=== PATIENT | male | born 1945 | race Caucasian/White ===

== ENCOUNTER 2016-08-30 13:07 | Inpatient (IN) | payer MEDICARE, OTHER ==
[~2016-08-30] VITALS: Ht 172.7 cm; Wt 77.1 kg
[2016-08-30] VITALS (8 sets, daily range): BP systolic 136–175; BP diastolic 80–97
[2016-08-30] MEDS ORDERED: OMEP20TA63 PO (14:19)
[2016-08-30] MEDS ORDERED: EZET10TA3 PO (14:19)
--- NOTE | 2016-08-30 15:20 | RAD ---
Indication dizziness. Suspect CVA. Grayscale color Doppler and spectral imaging was performed. Examination was targeted to the carotid bifurcations. On the right there is no significant plaquing. The color Doppler images do not suggest significant turbulence. Common carotid waveform and velocities are normal. The external carotid has a normal appearance. The internal carotid waveform and velocities are normal. The vertebral is patent and demonstrates normal directional flow. On the left there is no significant plaquing. The color Doppler images do not suggest significant turbulence. The common carotid waveform and velocities are normal. The external carotid has a normal appearance. The internal carotid waveform and velocities are normal. The vertebral is patent and demonstrates normal directional flow. IMPRESSION: No evidence of hemodynamically significant stenosis at either carotid bifurcation. Stenosis 0-50%. Note: Stenosis calculations for CT, MR and conventional angiography are based upon determination of the distal ICA diameter in accordance with the NASCET methodology. Stenosis calculations for doppler studies are derived from validated velocity criteria which are known to correlate with NASCET methodology of determining stenosis.
--- NOTE | 2016-08-30 16:16 | CARD ---
APPROVED REPORT EXAM: Two-dimensional and M-mode echocardiogram with Doppler and color Doppler. Other Information Quality : GoodHR: 62bpm Rhythm : NSR INDICATION Dizziness 2D DIMENSIONS RVDd2.4 (2.9-3.5cm)Left Atrium(2D)3.2 (1.6-4.0cm) IVSd1.0 (0.7-1.1cm)Aortic Root(2D)3.8 (2.0-3.7cm) LVDd5.0 (3.9-5.9cm)LVOT Diameter2.3 (1.8-2.4cm) PWd1.0 (0.7-1.1cm)LVDs3.2 (2.5-4.0cm) FS (%) 35.3 %SV74.7 ml LVEF(%)64.4 (>50%) Mitral Valve MV E Wfrlyopq13.9cm/sMV E Peak Gr.174mmHg MV DECEL [id number] A Xanmirag24.4cm/s MV E Mean Gr.35mmHgE/A Ratio1.3 MV A [id number] Pulmonary Valve PV Peak Jpecmsjn426.1cm/s Tricuspid Valve TR P. Oyyeeveu039et/sTR Peak Gr.34mmHg Pulmonary Vein S1 Pmbqcpcu50.1cm/sD2 Miqoyhpc46.3cm/s PVa [id number] LEFT VENTRICLE The left ventricle is normal size. There is normal left ventricular wall thickness. The left ventricu lar systolic function is normal and the ejection fraction is within normal range. The Ejection Fracti on is 60-65%. There is normal LV segmental wall motion. The left ventricular diastolic function and f illing is normal for age. RIGHT VENTRICLE The right ventricle is normal size. The right ventricular systolic function is normal. ATRIA The left atrium is mildly dilated. The right atrium size is normal. The interatrial septum is intact with no evidence for an atrial septal defect or patent foramen ovale as noted on 2-D or Doppler imagi ng. AORTIC VALVE The aortic valve is normal in structure and function. Doppler and Color Flow revealed no significant aortic regurgitation. There is no significant aortic valvular stenosis. MITRAL VALVE The mitral valve is normal in structure and function. There is no evidence of mitral valve prolapse. There is no mitral valve stenosis. Doppler and Color Flow revealed mild mitral regurgitation. TRICUSPID VALVE The tricuspid valve is normal in structure and function. Doppler and Color Flow revealed mild tricusp id regurgitation. The PA pressure was estimated at 34 mmHg. There is no tricuspid valve stenosis. PULMONIC VALVE The pulmonary valve is normal in structure and function. Doppler and Color Flow revealed trace pulmon ic valvular regurgitation. There is no pulmonic valvular stenosis. GREAT VESSELS The aortic root is normal in size. The ascending aorta is normal in size. The pulmonary artery is nor mal. The IVC is normal in size and collapses >50% with inspiration. PERICARDIAL EFFUSION There is no evidence of significant pericardial effusion. Critical Notification Critical Value: No <Conclusion> The left ventricle is normal size. The left ventricular systolic function is normal and the ejection fraction is within normal range. The Ejection Fraction is 60-65%. There is no significant aortic valvular stenosis. Doppler and Color Flow revealed no significant aortic regurgitation. Doppler and Color Flow revealed mild mitral regurgitation. Doppler and Color Flow revealed mild tricuspid regurgitation. The PA pressure was estimated at 34 mmHg.
[2016-08-30] MEDS ORDERED: ASPIRIN 325 MG TABLET PO ONE (16:30)
--- NOTE | 2016-08-30 17:05 | PDOC2 ---
NEUROLOGY CONSULT Date of Admission Date of Admission DATE: 08/30/16 TIME: 16:52 Reason for Consult Reason for Consult: IMPRESSION: Dizziness. Syncopal spells x 2. HTN RECOMMENDATIONS/PLAN: Treat HTN. Carotid A US + Doppler, performed. 12-lead EKG. Echo performed. Lab: see orders. HCT w/o contrast. Ortho BP and HR. ASA 325 mg daily. OT/PT HISTORY OF THE PRESENT ILLNESS: 71-y-old male patient stated he was healthy previously but had 2 syncopal and dizziness episodes this time. The first one was on 08/29/16 while he was going shopping. He felt dizzy, unsteadiness with mild mental status changes , and feeling of falling and he had to hold object to avoid fall. His episode lasted for a few minutes then returned to normal. He denied perspiration, black out, vision decrease or loss. The 2nd episode was in the morning of 08/30/16 after shaving of snow. He returned to house then had similar episode. He was eventually admitted into the hospital for further evaluation after seeing his PCP. He was found to have HTN which he has no knowledge before. No focalized motor or sensory deficits. No seizures. PAST MEDICAL HISTORY: Please see above. PAST SURGERY HISTORY: No major surgery recently. ALLERGY: NKDA MEDICATIONS: Refer to [facility] FAMILY HISTORY: Non contributory. SOCIAL HISTORY: Lives at home. Denies smoking, drinking, and illicit drug use. REVIEW OF SYSTEMS: Constitutional: No malnutrition, weight loss, cachexia. Head: No recent traumatic brain or head injury. Skin: No edema, or rash. Ear: No infection, tinnitus. Eyes: No vision loss or color blindness. Nose: No bleeding or purulent discharges. Hearing: No hearing decrease. Neck: No injury. Cardiac: HTN found this time. Pulmonary: No COPD. GI: No GI ulcer, GI bleeding. Urinary/genital: No dysuria, hematuria, incontinence. Endocrinologic: No cousin face, craniofacial dysmorphism, polydactyly, goiter.. Skeletomuscular: No muscular atrophy, deformity. Neurological: see HP. Psychiatric: Denies drug use/abuse. Otherwise, not [id number] review of systems. PHYSICAL EXAMINATION: General appearance is in no acute distress. HEENT: Normocephalic and nontraumatic. Eyes, nose, ears, and throat are unremarkable. Neck is supple. No lymphadenopathy. No bruits are heard over the carotid artery. No crepitus. Cardiovascular: S1, S2, regular rate and rhythm. Pulmonary: Clear to auscultation bilaterally. Abdomen: Bowel sounds are positive. Abdomen is soft, nontender, and nondistended. Extremities: No rash, lesions, or edema. No restriction of range of motion NEUROLOGICAL EXAMINATION: Alert Oriented to time, place and person. PERRL. EOMI. CN: no focal findings. Muscle tone: within normal. Muscle strength: 5 DTR: 2+ Plantar reflex: Flexor response bilaterally Gait: At baseline normal. Sensory exam: no abnormal findings. No cerebellar signs elicited. F-T-N test accurate. Current Medications Current Medications Current Medications EZETIMIBE (Zetia) 10 mg DAILY PO ; Start 08/31/16 at 09:00 Pantoprazole Sodium (Protonix) 40 mg DAILYAC PO ; Start 08/31/16 at 07:30 Aspirin (Murtaza Aspirin) 325 mg 1X ONCE PO Last administered on 08/30/16t 16:30 ; Start 08/30/16 at 16:30; Stop 08/30/16 at 16:31; Status DC Active Scripts Active Reported Zetia (Ezetimibe) 10 Mg Tablet 1 Tab PO DAILY Prilosec Otc (Omeprazole Magnesium) 20 Mg Tablet. 1 Tab PO DAILY Allergies Allergies: Coded Allergies: No Known Drug Allergies (Unverified , 08/30/16) Vitals VITALS Vital Signs Date Time Temp Pulse Resp B/P Pulse Ox O2 Delivery O2 Flow Rate FiO2 08/30/16 16:45 98.3 53 18 149/83 99 Room Air 98.3 MARILYNN SEWELL MD Aug 30, 2016 17:04
--- NOTE | 2016-08-30 17:20 | PDOC ---
GENERAL General: see dictated H&P. Problems: VITAL SIGNS Vital Signs: Vital Signs Date Time Temp Pulse Resp B/P Pulse Ox O2 Delivery O2 Flow Rate FiO2 08/30/16 16:45 98.3 53 18 149/83 99 Room Air 98.3 ALLERGIES Allergies: Allergies Coded Allergies Type Severity Reaction Last Updated Verified No Known Drug Allergies 08/30/16 No MEDS Medications: Current Medications Medications (Trade) Dose Ordered Sig/Jamie Start Time Stop Time Status Last Admin Dose Admin Aspirin (Murtaza Aspirin) 325 mg DAILYWBKFT 08/31/16 08:00 EZETIMIBE (Zetia) 10 mg DAILY 08/31/16 09:00 Pantoprazole Sodium (Protonix) 40 mg DAILYAC 08/31/16 07:30 JANNETTE LEGGETT MD Aug 30, 2016 17:20
--- NOTE | 2016-08-30 18:17 | EKG ---
[facility] [address] [place] [address] Test Date: 2016-08-30 Test Time: 18:11:11 Pat Name: TEODORO YUAN Department: Room: [facility] Gender: M Individual Pension Consultant: : 1945 Requested By: MARILYNN SEWELL Order Number: [id number] Reading MD: Measurements Intervals [place] Rate: 59 P: 38 IA: 184 QRS: 38 QRSD: 98 T: 64 QT: 416 QTc: 416 Interpretive Statements SINUS RHYTHM NORMAL ECG RI6.01 Unconfirmed report No previous ECG available for comparison
[2016-08-30 18:42] LABS: BASO % 1 % (0-3); EOS % 1 % (0-3); HEMATOCRIT 43.7 % (39.0-53.0); HEMOGLOBIN 14.7 g/dL (13.0-17.5); LYMPH # 1.9 x10^3/uL (1.0-4.8); LYMPH % 27 % (24-48); MEAN CORPUSCULAR HEMOGLOBIN 31 pg (25-35); MEAN CORPUSCULAR HGB CONC 34 g/dL (31-37); MEAN CORPUSCULAR VOLUME 92 fL (79-100); MONO % 5 % (0-9); NEUT % 66 % (31-73); PLATELET COUNT 135 x10^3/uL (140-400); RED BLOOD COUNT 4.74 x10^6/uL (4.30-5.70); RED CELL DISTRIBUTION WIDTH 13.4 % (11.5-14.5); WHITE BLOOD COUNT 6.9 x10^3/uL (4.0-11.0)
[2016-08-30 19:02] LABS: ALBUMIN 3.7 g/dL (3.4-5.0); ALBUMIN/GLOBULIN RATIO 1.2 (1.0-1.7); CALCIUM 9.1 mg/dL (8.5-10.1); GFR 74.1; POTASSIUM 3.8 mmol/L (3.5-5.1); TOTAL BILIRUBIN 0.6 mg/dL (0.2-1.0); TOTAL PROTEIN 6.7 g/dL (6.4-8.2)
--- NOTE | 2016-08-30 20:16 | HP ---
ADMIT DATE: 08/30/2016 CHIEF COMPLAINT AND HISTORY OF PRESENT ILLNESS: This is a 71-year-old white male who is well known to me from followup in the office. The patient has had several spells since the day prior, who has felt weak. On the first spell, he was out shopping with his and it felt like he might fall over. He denies vertigo with it or specific lightheadedness, but just felt like he was going to fall. He went to speak to his to tell her and was not able momentarily to get any words out, but then this cleared relatively rapidly. Upon getting a hold of the grocery cart and walking with that, he seemed to feel fine, but when he would let go the cart, he did not feel quite as good suggesting may be an acute balance type issue. However, on the day of admission, he had had several episodes while sitting. He has had no further troubles talking. He denied any palpitations, any hemiparesis, seizure type activity, etc.; however, he does admit to a history of orthostasis which he has had for some time, particularly if he takes a hot bath and gets up too quick but is really not troublesome to him. With the spell I was worried about possible TIA type activity versus arrhythmia and felt that he should be admitted at least to get a carotid Doppler, echo, have him on telemetry, see Cardiology and Neurology for clearance for getting him at this, and the patient was admitted. PAST MEDICAL HISTORY: Remarkable for diet-controlled diabetes, has a history of GERD, hyperlipidemia for which he takes Zetia, has had a history of kidney stones and some osteoarthritis. MEDICATIONS: Brought with the patient, listed on the computer and have been addressed. SOCIAL HISTORY: The patient is a nonsmoker, nondrinker. Does not abuse drugs. , lives at home with his . FAMILY HISTORY: Positive for dad dying of cancer is his 60s in the throat, mom dying of liver problems and was a drinker. REVIEW OF SYSTEMS: As mentioned above. PHYSICAL EXAMINATION: GENERAL: This is a well-developed, well-nourished white male in no acute distress. VITAL SIGNS: Reveal blood pressure of 125/70 that goes to 112/70 upon stand. Pulse is 70 and regular. HEAD, EYES, EARS, NOSE AND THROAT: Unremarkable. NECK: Supple, without adenopathy or thyromegaly. CHEST: Clear to auscultation and percussion. HEART: Regular rate and rhythm without S3, S4 or murmur. ABDOMEN: Soft and nontender, without hepatosplenomegaly or mass. EXTREMITIES: Without cyanosis, clubbing or edema. NEUROLOGIC: He is intact. I hear no carotid bruits. IMPRESSION: Dizziness as described above of uncertain etiology. PLAN: The patient has been admitted. He will be monitored on telemetry, echo and carotid Dopplers will be checked. Cardiology and Neurology will be asked to see the patient. He will be monitored, managed and treated appropriately. JANNETTE LEGGETT MD DR: LAYO/leo JOB#: [id number] / [id number]
[2016-08-30 20:42] LABS: BILIRUBIN,URINE NEGATIVE (NEG); GLUCOSE,URINE NEGATIVE (NEG); NITRITE,URINE NEGATIVE (NEG); PROTEIN,URINE NEGATIVE (NEG-TRACE); UROBILINOGEN,URINE 0.2 mg/dL (0.2 mg/dL)
[2016-08-30 20:46] LABS: BARBITURATES NEG (NEG); BENZODIAZEPINES NEG (NEG); CANNABINOIDS NEG (NEG); COCAINE NEG (NEG); ETHANOL, URINE NEG (NEG); METHADONE NEG (NEG); OPIATES NEG (NEG); PHENCYCLIDINE NEG (NEG)
[2016-08-30 20:49] LABS: BACTERIA,URINE 0 /HPF (0-FEW); RBC,URINE 0 /HPF (0-2); SQUAMOUS EPITHELIAL CELL,UR OCC /LPF; WBC,URINE 0 /HPF (0-4)
[2016-08-31] VITALS (8 sets, daily range): BP systolic 95–180; BP diastolic 64–91
[2016-08-31] MEDS ORDERED: ACETAMINOPHEN 325 MG TABLET. PO PRN (06:30)
[2016-08-31] MEDS: PANTOPRAZOLE 40 MG TABLET. PO SCH (07:11)
[2016-08-31] MEDS: ASPIRIN 325 MG TABLET PO SCH (08:37)
[2016-08-31] MEDS: EZETIMIBE 10 MG TABLET PO SCH (08:37)
--- NOTE | 2016-08-31 09:48 | RAD ---
One or more of the following individualized dose reduction techniques were utilized for this examination: 1. Automated exposure control 2. Adjustment of the mA and/or kV according to patient size 3. Use of iterative reconstruction technique CT brain without contrast. History: Dizziness, mental status changes CT scan of the brain was done without contrast. There is no intracranial hemorrhage or subdural hematoma. Ventricles are normal in size. There is no mass or shift of the midline. An acute CVA is not identified. Visualized sinuses are clear. Impression: 1. No intracranial hemorrhage or mass or acute finding noted. 2. An acute CVA is not identified.
[2016-08-31 10:21] LABS: CHOLESTEROL/HDL RATIO 2.1
--- NOTE | 2016-08-31 11:24 | PDOC ---
SUBJECTIVE Subjective feels ok, no dizziness, OBJECTIVE Vital Signs Vital Signs Date Time Temp Pulse Resp B/P Pulse Ox O2 Delivery O2 Flow Rate FiO2 08/31/16 11:11 98.1 61 18 142/86 97 Room Air 98.1 08/31/16 08:00 Room Air 08/31/16 07:10 69 95/64 97 Room Air 08/31/16 07:05 61 116/70 98 Room Air 08/31/16 07:00 97.8 54 18 139/67 97 Room Air 97.8 08/31/16 03:00 97.5 55 20 142/77 97 Room Air 97.5 08/30/16 23:00 97.3 53 20 143/80 98 Room Air 97.3 08/30/16 20:01 Room Air 08/30/16 19:00 98.1 60 20 141/84 99 Room Air 98.1 08/30/16 19:00 97.9 55 20 167/83 99 Room Air 97.9 08/30/16 19:00 97.9 52 20 175/80 100 Room Air 97.9 08/30/16 17:20 98.3 53 149/83 99 98.3 08/30/16 16:51 Room Air 08/30/16 16:45 98.3 53 18 149/83 99 Room Air 98.3 08/30/16 16:40 98.0 66 18 136/88 100 Room Air 98.0 08/30/16 16:35 97.9 53 18 165/86 100 Room Air 97.9 08/30/16 14:49 97.7 54 18 156/87 Room Air 97.7 170/97 I & O Intake and Output 08/31/16 07:00 Intake Total 570 ml Balance 570 ml Intake Oral 570 ml # Voids 3 PHYSICAL EXAM Physical Exam lungs clear heart RRR abd soft ext no edema ASSESSMENT/PLAN Assessment/Plan carotid ok, echo with mild pulmonary HTN ? cause no recent travel no calf pain but will check CTA chest R/O PE, increase activity today , pt encouraged to walk on floor, continue monitor likely home in AM Problems: COMMENT Lab Laboratory Tests Test 08/30/16 18:00 08/30/16 20:30 08/31/16 09:50 White Blood Count 6.9x10^3/uL (4.0-11.0) Red Blood Count 4.74x10^6/uL (4.30-5.70) Hemoglobin 14.7g/dL (13.0-17.5) Hematocrit 43.7% (39.0-53.0) Mean Corpuscular Volume 92fL (79-100) Mean Corpuscular Hemoglobin 31pg (25-35) Mean Corpuscular Hemoglobin Concent 34g/dL (31-37) Red Cell Distribution Width 13.4% (11.5-14.5) Platelet Count 135x10^3/uL (140-400) Neutrophils (%) (Auto) 66% (31-73) Lymphocytes (%) (Auto) 27% (24-48) Monocytes (%) (Auto) 5% (0-9) Eosinophils (%) (Auto) 1% (0-3) Basophils (%) (Auto) 1% (0-3) Neutrophils # (Auto) 4.5x10^3uL (1.8-7.7) Lymphocytes # (Auto) 1.9x10^3/uL (1.0-4.8) Monocytes # (Auto) 0.4x10^3/uL (0.0-1.1) Eosinophils # (Auto) 0.1x10^3/uL (0.0-0.7) Basophils # (Auto) 0.0x10^3/uL (0.0-0.2) Sodium Level 142mmol/L (136-145) Potassium Level 3.8mmol/L (3.5-5.1) Chloride Level 105mmol/L (98-107) Carbon Dioxide Level 32mmol/L (21-32) Anion Gap 5 (6-14) Blood Urea Nitrogen 16mg/dL (8-26) Creatinine 1.0mg/dL (0.7-1.3) Estimated GFR (Cockcroft-Gault) 74.1 BUN/Creatinine Ratio 16 (6-20) Glucose Level 141mg/dL (70-99) Calcium Level 9.1mg/dL (8.5-10.1) Total Bilirubin 0.6mg/dL (0.2-1.0) Aspartate Amino Transf (AST/SGOT) 27U/L (15-37) Alanine Aminotransferase (ALT/SGPT) 19U/L (16-63) Alkaline Phosphatase 61U/L (46-116) Total Protein 6.7g/dL (6.4-8.2) Albumin 3.7g/dL (3.4-5.0) Albumin/Globulin Ratio 1.2 (1.0-1.7) Urine Collection Type Unknown Urine Color Yellow Urine Clarity Clear Urine pH 7.0 Urine Specific [place] 1.010 Urine Protein Negativemg/dL (NEG-TRACE) Urine Glucose (UA) Negativemg/dL (NEG) Urine Ketones (Stick) Negativemg/dL (NEG) Urine Blood Negative (NEG) Urine Nitrite Negative (NEG) Urine Bilirubin Negative (NEG) Urine Urobilinogen Dipstick 0.2mg/dL (0.2 mg/dL) Urine Leukocyte Esterase Negative (NEG) Urine RBC 0/HPF (0-2) Urine WBC 0/HPF (0-4) Urine Squamous Epithelial Cells Occ/LPF Urine Bacteria 0/HPF (0-FEW) Urine Mucus Slight/LPF Urine Opiates Screen Neg (NEG) Urine Methadone Screen Neg (NEG) Urine Barbiturates Neg (NEG) Urine Phencyclidine Screen Neg (NEG) Urine Amphetamine/Methamphetamine Neg (NEG) Urine Benzodiazepines Screen Neg (NEG) Urine Cocaine Screen Neg (NEG) Urine Cannabinoids Screen Neg (NEG) Urine Ethyl Alcohol Neg (NEG) Triglycerides Level 30mg/dL (0-150) Cholesterol Level 152mg/dL (0-200) LDL Cholesterol, Calculated 72mg/dL (0-100) VLDL Cholesterol, Calculated 6mg/dL (0-40) HDL Cholesterol 74mg/dL (40-60) Cholesterol/HDL Ratio 2.1 JIMI ALEX MD Aug 31, 2016 11:24
[2016-08-31] MEDS ORDERED: IOHEXOL 300 MG/ML 100ML VIAL. IV ONE (11:30)
[2016-08-31] MEDS ORDERED: ZOLPIDEM 5 MG TABLET. PO PRN (11:30)
--- NOTE | 2016-08-31 11:54 | PDOC2 ---
CARDIAC CONSULT DATE OF CONSULT Date of Consult DATE: 08/31/16 TIME: 11:52 REASON FOR CONSULT Reason for Consult: dizziness REFERRING PHYSICIAN Referring Physician: Dr. Timo Lima SOURCE Source: Chart review, Patient HISTORY OF PRESENT ILLNESS HISTORY OF PRESENT ILLNESS 71 year old male with dizziness on 08/29/2016 while shopping. Had walked into the store from the parking lot and then became dizzy. Reports feeling like he was not "attached" to his body; denies vertigo. Walked hallways this a.m. without symptoms. EKG without dysrhythmias and no evidence of dysrhythmias on telemetry since admission. Echo completed without significant findings. Reason for Visit: dizziness PAST MEDICAL HISTORY Cardiovascular: HTN GI: GERD Musculoskeletal: Osteoarthritis Renal/: Other (renal calculi) Endocrine: Diabetes PAST SURGICAL HISTORY Past Surgical History: Cholecystectomy, Other (cervical fusion) FAMILY HISTORY Family History: Cancer SOCIAL HISTORY Smoke: No ALCOHOL: none Drugs: None Lives: with Family CURRENT MEDICATIONS CURRENT MEDICATIONS Current Medications Medications (Trade) Dose Ordered Sig/Jamie Route PRN Reason Start Time Stop Time Status Last Admin Dose Admin EZETIMIBE (Zetia) 10 mg DAILY PO 08/31/16 09:00 08/31/16 08:37 Pantoprazole Sodium (Protonix) 40 mg DAILYAC PO 08/31/16 07:30 08/31/16 07:11 Aspirin (Murtaza Aspirin) 325 mg 1X ONCE PO 08/30/16 16:30 08/30/16 16:31 DC 08/30/16 16:30 Aspirin (Murtaza Aspirin) 325 mg DAILYWBKFT PO 08/31/16 08:00 08/31/16 08:37 Acetaminophen (Tylenol) 650 mg PRN Q6HRS PRN PO MILD PAIN / TEMP 08/31/16 06:30 08/31/16 07:11 ALLERGIES ALLERGIES: Coded Allergies: No Known Drug Allergies (Unverified , 08/30/16) ROS Review of System 14 point review with pertinent positives in HPI PHYSICAL EXAM General: Alert, Oriented X3, Cooperative, No acute distress HEENT: Atraumatic, PERRLA Lungs: Clear to auscultation, Normal air movement Heart: Regular rate, Normal S1, Normal S2, No murmurs, Other (no carotid bruits ; tele: SR) Abdomen: Normal bowel sounds, Soft, No tenderness Extremities: No edema, Normal pulses Skin: No rashes Neuro: Normal speech Psych/Mental Status: Mental status NL, Mood NL MUSCULOSKELETAL: No deformity VITALS VITALS Vital Signs Date Time Temp Pulse Resp B/P Pulse Ox O2 Delivery O2 Flow Rate FiO2 08/31/16 11:11 98.1 61 18 142/86 97 Room Air 98.1 LABS Lab: Laboratory Tests Test 08/30/16 18:00 08/30/16 20:30 08/31/16 09:50 White Blood Count 6.9x10^3/uL (4.0-11.0) Red Blood Count 4.74x10^6/uL (4.30-5.70) Hemoglobin 14.7g/dL (13.0-17.5) Hematocrit 43.7% (39.0-53.0) Mean Corpuscular Volume 92fL (79-100) Mean Corpuscular Hemoglobin 31pg (25-35) Mean Corpuscular Hemoglobin Concent 34g/dL (31-37) Red Cell Distribution Width 13.4% (11.5-14.5) Platelet Count 135x10^3/uL (140-400) Neutrophils (%) (Auto) 66% (31-73) Lymphocytes (%) (Auto) 27% (24-48) Monocytes (%) (Auto) 5% (0-9) Eosinophils (%) (Auto) 1% (0-3) Basophils (%) (Auto) 1% (0-3) Neutrophils # (Auto) 4.5x10^3uL (1.8-7.7) Lymphocytes # (Auto) 1.9x10^3/uL (1.0-4.8) Monocytes # (Auto) 0.4x10^3/uL (0.0-1.1) Eosinophils # (Auto) 0.1x10^3/uL (0.0-0.7) Basophils # (Auto) 0.0x10^3/uL (0.0-0.2) Sodium Level 142mmol/L (136-145) Potassium Level 3.8mmol/L (3.5-5.1) Chloride Level 105mmol/L (98-107) Carbon Dioxide Level 32mmol/L (21-32) Anion Gap 5 (6-14) Blood Urea Nitrogen 16mg/dL (8-26) Creatinine 1.0mg/dL (0.7-1.3) Estimated GFR (Cockcroft-Gault) 74.1 BUN/Creatinine Ratio 16 (6-20) Glucose Level 141mg/dL (70-99) Calcium Level 9.1mg/dL (8.5-10.1) Total Bilirubin 0.6mg/dL (0.2-1.0) Aspartate Amino Transf (AST/SGOT) 27U/L (15-37) Alanine Aminotransferase (ALT/SGPT) 19U/L (16-63) Alkaline Phosphatase 61U/L (46-116) Total Protein 6.7g/dL (6.4-8.2) Albumin 3.7g/dL (3.4-5.0) Albumin/Globulin Ratio 1.2 (1.0-1.7) Urine Collection Type Unknown Urine Color Yellow Urine Clarity Clear Urine pH 7.0 Urine Specific [place] 1.010 Urine Protein Negativemg/dL (NEG-TRACE) Urine Glucose (UA) Negativemg/dL (NEG) Urine Ketones (Stick) Negativemg/dL (NEG) Urine Blood Negative (NEG) Urine Nitrite Negative (NEG) Urine Bilirubin Negative (NEG) Urine Urobilinogen Dipstick 0.2mg/dL (0.2 mg/dL) Urine Leukocyte Esterase Negative (NEG) Urine RBC 0/HPF (0-2) Urine WBC 0/HPF (0-4) Urine Squamous Epithelial Cells Occ/LPF Urine Bacteria 0/HPF (0-FEW) Urine Mucus Slight/LPF Urine Opiates Screen Neg (NEG) Urine Methadone Screen Neg (NEG) Urine Barbiturates Neg (NEG) Urine Phencyclidine Screen Neg (NEG) Urine Amphetamine/Methamphetamine Neg (NEG) Urine Benzodiazepines Screen Neg (NEG) Urine Cocaine Screen Neg (NEG) Urine Cannabinoids Screen Neg (NEG) Urine Ethyl Alcohol Neg (NEG) Triglycerides Level 30mg/dL (0-150) Cholesterol Level 152mg/dL (0-200) LDL Cholesterol, Calculated 72mg/dL (0-100) VLDL Cholesterol, Calculated 6mg/dL (0-40) HDL Cholesterol 74mg/dL (40-60) Cholesterol/HDL Ratio 2.[address] head and CDU without significant findings EKG EKG no acute changes; SR ECHOCARDIOGRAM ECHOCARDIOGRAM TTE: The left ventricle is normal size. The left ventricular systolic function is normal and the ejection fraction is within normal range. The Ejection Fraction is 60-65%. There is no significant aortic valvular stenosis. Doppler and Color Flow revealed no significant aortic regurgitation. Doppler and Color Flow revealed mild mitral regurgitation. Doppler and Color Flow revealed mild tricuspid regurgitation. The PA pressure was estimated at 34 mmHg. ASSESSMENT/PLAN ASSESSMENT/PLAN 1. dizziness no evidence of cardiac dysrhythmia suspect orthostasis with supine SBP of 139 and standing SBP of 95; HR from 54 -69 increase p.o. intake consider compression hose; change position cautiously and no prolonged standing CT to evaluate for pulm embolism 2. HTN per primary service 3. DM diet controlled 4. HLD continue medication Problems: RAS ANAYA APRN Aug 31, 2016 11:54
--- NOTE | 2016-08-31 14:26 | RAD ---
One or more of the following individualized dose reduction techniques were utilized for this examination: 1. Automated exposure control 2. Adjustment of the mA and/or kV according to patient size 3. Use of iterative reconstruction technique CT arteriogram of the chest. History: Dizzy, pulmonary hypertension on echo, evaluate for pulmonary embolus CT arteriogram was done using 75 mL of Omnipaque 300 contrast. There is a small thyroid nodule on the left. There is no mediastinal adenopathy other than granulomatous calcifications in mediastinal and hilar lymph nodes. There is no pleural effusion. There are granulomatous calcifications in the liver and spleen. Adrenal glands and pancreas are unremarkable. There is a cyst in the right kidney. Sagittal and coronal MIP images were reconstructed. There are calcified granulomas in the right lung. The study is negative for evidence of a pulmonary embolus. Impression: 1. Granulomatous calcifications. 2. Negative for pulmonary emboli
--- NOTE | 2016-08-31 15:04 | PDOC ---
PROGRESS NOTES Assessment Assessment Dizziness. Syncopal spells x 2. HTN Orthostatic hypotension likely. No evidence of large acute CVA this time. RECOMMENDATIONS/PLAN: Treat HTN. Ortho BP and HR. Continue ASA 325 mg daily. OT/PT FU with PCP. HISTORY OF THE PRESENT ILLNESS: 71-y-old male patient stated he was healthy previously but had 2 syncopal and dizziness episodes this time. The first one was on 08/29/16 while he was going shopping. He felt dizzy, unsteadiness with mild mental status changes , and feeling of falling and he had to hold object to avoid fall. His episode lasted for a few minutes then returned to normal. He denied perspiration, black out, vision decrease or loss. The 2nd episode was in the morning of 08/30/16 after shaving of snow. He returned to house then had similar episode. He was eventually admitted into the hospital for further evaluation after seeing his PCP. He was found to have HTN which he has no knowledge before. No focalized motor or sensory deficits. No seizures. He stated he has been doing well since in the hospital. PAST MEDICAL HISTORY: Please see above. PAST SURGERY HISTORY: No major surgery recently. ALLERGY: NKDA MEDICATIONS: Refer to [facility] HISTORY: Non contributory. SOCIAL HISTORY: Lives at home. Denies smoking, drinking, and illicit drug use. REVIEW OF SYSTEMS: Constitutional: No malnutrition, weight loss, cachexia. Head: No recent traumatic brain or head injury. Skin: No edema, or rash. Ear: No infection, tinnitus. Eyes: No vision loss or color blindness. Nose: No bleeding or purulent discharges. Hearing: No hearing decrease. Neck: No injury. Cardiac: HTN found this time. Pulmonary: No COPD. GI: No GI ulcer, GI bleeding. Urinary/genital: No dysuria, hematuria, incontinence. Endocrinologic: No cousin face, craniofacial dysmorphism, polydactyly, goiter.. Skeletomuscular: No muscular atrophy, deformity. Neurological: see HP. Psychiatric: Denies drug use/abuse. Otherwise, not [id number] review of systems. PHYSICAL EXAMINATION: General appearance is in no acute distress. HEENT: Normocephalic and nontraumatic. Eyes, nose, ears, and throat are unremarkable. Neck is supple. No lymphadenopathy. No bruits are heard over the carotid artery. No crepitus. Cardiovascular: S1, S2, regular rate and rhythm. Pulmonary: Clear to auscultation bilaterally. Abdomen: Bowel sounds are positive. Abdomen is soft, nontender, and nondistended. Extremities: No rash, lesions, or edema. No restriction of range of motion NEUROLOGICAL EXAMINATION: Alert Oriented to time, place and person. PERRL. EOMI. CN: no focal findings. Muscle tone: within normal. Muscle strength: 5 DTR: 2+ Plantar reflex: Flexor response bilaterally Gait: At baseline normal. Sensory exam: no abnormal findings. No cerebellar signs elicited. F-T-N test accurate. Objective Objective Vital Signs Date Time Temp Pulse Resp B/P Pulse Ox O2 Delivery O2 Flow Rate FiO2 08/31/16 14:55 98.2 58 18 136/78 100 Room Air 98.2 Intake and Output 08/31/16 07:00 Intake Total 570 ml Balance 570 ml Intake Oral 570 ml # Voids 3 Vitals Signs Vitals VS - Last 72 Hours, by Label Date Time Temp Pulse Resp B/P Pulse Ox O2 Delivery O2 Flow Rate FiO2 08/31/16 14:55 98.2 58 18 136/78 100 Room Air 98.2 08/31/16 11:11 98.1 61 18 142/86 97 Room Air 98.1 08/31/16 08:00 Room Air 08/31/16 07:10 69 95/64 97 Room Air 08/31/16 07:05 61 116/70 98 Room Air 08/31/16 07:00 97.8 54 18 139/67 97 Room Air 97.8 08/31/16 03:00 97.5 55 20 142/77 97 Room Air 97.5 08/30/16 23:00 97.3 53 20 143/80 98 Room Air 97.3 08/30/16 20:01 Room Air 08/30/16 19:00 98.1 60 20 141/84 99 Room Air 98.1 08/30/16 19:00 97.9 55 20 167/83 99 Room Air 97.9 08/30/16 19:00 97.9 52 20 175/80 100 Room Air 97.9 08/30/16 17:20 98.3 53 149/83 99 98.3 08/30/16 16:51 Room Air 08/30/16 16:45 98.3 53 18 149/83 99 Room Air 98.3 08/30/16 16:40 98.0 66 18 136/88 100 Room Air 98.0 08/30/16 16:35 97.9 53 18 165/86 100 Room Air 97.9 08/30/16 14:49 97.7 54 18 156/87 Room Air 97.7 170/97 Laboratory Laboratory Laboratory Tests Test 08/30/16 18:00 08/30/16 20:30 08/31/16 09:50 08/31/16 12:40 White Blood Count 6.9x10^3/uL (4.0-11.0) Red Blood Count 4.74x10^6/uL (4.30-5.70) Hemoglobin 14.7g/dL (13.0-17.5) Hematocrit 43.7% (39.0-53.0) Mean Corpuscular Volume 92fL (79-100) Mean Corpuscular Hemoglobin 31pg (25-35) Mean Corpuscular Hemoglobin Concent 34g/dL (31-37) Red Cell Distribution Width 13.4% (11.5-14.5) Platelet Count 135x10^3/uL (140-400) Neutrophils (%) (Auto) 66% (31-73) Lymphocytes (%) (Auto) 27% (24-48) Monocytes (%) (Auto) 5% (0-9) Eosinophils (%) (Auto) 1% (0-3) Basophils (%) (Auto) 1% (0-3) Neutrophils # (Auto) 4.5x10^3uL (1.8-7.7) Lymphocytes # (Auto) 1.9x10^3/uL (1.0-4.8) Monocytes # (Auto) 0.4x10^3/uL (0.0-1.1) Eosinophils # (Auto) 0.1x10^3/uL (0.0-0.7) Basophils # (Auto) 0.0x10^3/uL (0.0-0.2) Sodium Level 142mmol/L (136-145) Potassium Level 3.8mmol/L (3.5-5.1) Chloride Level 105mmol/L (98-107) Carbon Dioxide Level 32mmol/L (21-32) Anion Gap 5 (6-14) Blood Urea Nitrogen 16mg/dL (8-26) Creatinine 1.0mg/dL (0.7-1.3) Estimated GFR (Cockcroft-Gault) 74.1 BUN/Creatinine Ratio 16 (6-20) Glucose Level 141mg/dL (70-99) Calcium Level 9.1mg/dL (8.5-10.1) Total Bilirubin 0.6mg/dL (0.2-1.0) Aspartate Amino Transf (AST/SGOT) 27U/L (15-37) Alanine Aminotransferase (ALT/SGPT) 19U/L (16-63) Alkaline Phosphatase 61U/L (46-116) Total Protein 6.7g/dL (6.4-8.2) Albumin 3.7g/dL (3.4-5.0) Albumin/Globulin Ratio 1.2 (1.0-1.7) Urine Collection Type Unknown Urine Color Yellow Urine Clarity Clear Urine pH 7.0 Urine Specific [place] 1.010 Urine Protein Negativemg/dL (NEG-TRACE) Urine Glucose (UA) Negativemg/dL (NEG) Urine Ketones (Stick) Negativemg/dL (NEG) Urine Blood Negative (NEG) Urine Nitrite Negative (NEG) Urine Bilirubin Negative (NEG) Urine Urobilinogen Dipstick 0.2mg/dL (0.2 mg/dL) Urine Leukocyte Esterase Negative (NEG) Urine RBC 0/HPF (0-2) Urine WBC 0/HPF (0-4) Urine Squamous Epithelial Cells Occ/LPF Urine Bacteria 0/HPF (0-FEW) Urine Mucus Slight/LPF Urine Opiates Screen Neg (NEG) Urine Methadone Screen Neg (NEG) Urine Barbiturates Neg (NEG) Urine Phencyclidine Screen Neg (NEG) Urine Amphetamine/Methamphetamine Neg (NEG) Urine Benzodiazepines Screen Neg (NEG) Urine Cocaine Screen Neg (NEG) Urine Cannabinoids Screen Neg (NEG) Urine Ethyl Alcohol Neg (NEG) Triglycerides Level 30mg/dL (0-150) Cholesterol Level 152mg/dL (0-200) LDL Cholesterol, Calculated 72mg/dL (0-100) VLDL Cholesterol, Calculated 6mg/dL (0-40) HDL Cholesterol 74mg/dL (40-60) Cholesterol/HDL Ratio 2.1 D-Dimer (Gretta) < 0.27ug/mlFEU (0.00-0.50) Medication Medications Current Medications Acetaminophen (Tylenol) 650 mg PRN Q6HRS PRN PO MILD PAIN / TEMP Last administered on 08/31/16 07:11; Start 08/31/16 at 06:30 Aspirin (Murtaza Aspirin) 325 mg 1X ONCE PO Last administered on 08/30/16 16:30 ; Start 08/30/16 at 16:30; Stop 08/30/16 at 16:31; Status DC Aspirin (Murtaza Aspirin) 325 mg DAILYWBKFT PO Last administered on 08/31/16 08: 37; Start 08/31/16 at 08:00 EZETIMIBE (Zetia) 10 mg DAILY PO Last administered on 08/31/16 08:37; Start 08/31/16 at 09:00 Iohexol (Omnipaque 300 Mg/ml) 75 ml 1X ONCE IV Last administered on 08/31/16 13:44; Start 08/31/16 at 11:30; Stop 08/31/16 at 11:31; Status DC Pantoprazole Sodium (Protonix) 40 mg DAILYAC PO Last administered on 08/31/16 07:11; Start 08/31/16 at 07:30 Zolpidem Tartrate (Ambien) 5 mg PRN QHS PRN PO INSOMNIA, MAY REPEAT IN 1HR; Start 08/31/16 at 11:30 Comment Review of Relevant I have reviewed the following items alda (where applicable) has been applied. MARILYNN SEWELL MD Aug 31, 2016 15:04
[2016-09-01 03:00] VITALS: BP 126/81
[2016-09-01 05:47] LABS: HEMATOCRIT 44.2 % (39.0-53.0); HEMOGLOBIN 15.1 g/dL (13.0-17.5); RED BLOOD COUNT 4.81 x10^6/uL (4.30-5.70); RED CELL DISTRIBUTION WIDTH 13.2 % (11.5-14.5); WHITE BLOOD COUNT 6.5 x10^3/uL (4.0-11.0)
[2016-09-01 05:53] LABS: CALCIUM 8.7 mg/dL (8.5-10.1); CREATININE 1.1 mg/dL (0.7-1.3); GFR 66.4; POTASSIUM 4.6 mmol/L (3.5-5.1)
[2016-09-01 07:00] VITALS: BP 116/78
[2016-09-01] MEDS: ASPIRIN 325 MG TABLET PO SCH (07:46)
[2016-09-01] MEDS: PANTOPRAZOLE 40 MG TABLET. PO SCH (07:46)
[2016-09-01] MEDS: EZETIMIBE 10 MG TABLET PO SCH (07:46)
[2016-09-01 11:00] VITALS: BP 131/74
--- NOTE | 2016-09-01 12:03 | PDOC ---
SUBJECTIVE Subjective no further dizziness, feels better , No PE, No sleep apnea OBJECTIVE Vital Signs Vital Signs Date Time Temp Pulse Resp B/P Pulse Ox O2 Delivery O2 Flow Rate FiO2 09/01/16 11:00 98.2 54 16 131/74 100 Room Air 98.2 09/01/16 08:00 Room Air 09/01/16 07:00 98.3 63 18 116/78 98 Room Air 98.3 09/01/16 03:00 98.3 64 18 126/81 96 Room Air 98.3 08/31/16 23:00 98.2 62 20 130/85 98 Room Air 98.2 08/31/16 19:00 97.5 50 20 163/83 100 Room Air 97.5 08/31/16 19:00 98.0 60 20 128/76 98 Room Air 98.0 08/31/16 19:00 98.1 51 20 180/91 100 Room Air 98.1 08/31/16 14:55 98.2 58 18 136/78 100 Room Air 98.2 I & O Intake and Output 09/01/16 07:00 Intake Total 900 ml Balance 900 ml Intake Oral 900 ml # Voids 5 PHYSICAL EXAM Physical Exam exam normal ASSESSMENT/PLAN Assessment/Plan home today continue hydration, F/U out pt Problems: COMMENT Lab Laboratory Tests Test 08/31/16 12:40 09/01/16 05:20 D-Dimer (Gretta) < 0.27ug/mlFEU (0.00-0.50) White Blood Count 6.5x10^3/uL (4.0-11.0) Red Blood Count 4.81x10^6/uL (4.30-5.70) Hemoglobin 15.1g/dL (13.0-17.5) Hematocrit 44.2% (39.0-53.0) Mean Corpuscular Volume 92fL (79-100) Mean Corpuscular Hemoglobin 31pg (25-35) Mean Corpuscular Hemoglobin Concent 34g/dL (31-37) Red Cell Distribution Width 13.2% (11.5-14.5) Platelet Count 142x10^3/uL (140-400) Sodium Level 142mmol/L (136-145) Potassium Level 4.6mmol/L (3.5-5.1) Chloride Level 105mmol/L (98-107) Carbon Dioxide Level 29mmol/L (21-32) Anion Gap 8 (6-14) Blood Urea Nitrogen 17mg/dL (8-26) Creatinine 1.1mg/dL (0.7-1.3) Estimated GFR (Cockcroft-Gault) 66.4 Glucose Level 87mg/dL (70-99) Calcium Level 8.7mg/dL (8.5-10.1) JIMI ALEX MD Sep 01, 2016 12:03
--- NOTE | 2016-09-01 12:10 | PDOC3 ---
Discharge Summary* Date of Admission: Aug 30, 2016 Date of Discharge: Sep 01, 2016 Admitting Diagnosis Problems Medical Problems: (1) Dizziness Status: Acute Final Diagnosis 1-dizziness , orthostatic and positional 2- HLD on Zetia 3- chronic granulomatous lung disease 4- mild pulmonary HTN Problems Medical Problems: (1) Dizziness Status: Acute CONSULTS Cardiology Dr. Salgado Neurology [facility]ass[facility] Procedures CT head Carotid doppler CTA chest echocardiogram overnight oximetry Brief Hospital Course Mr. Fernández is a 71 old [sex] who presented with [ ] Disposition/Orders: D/C to Home CONDITION AT DISCHARGE: Improved, Stable Diet: 2 gr sodium Scheduled Ezetimibe (Zetia) 1 TAB PO DAILY (Reported) Omeprazole Magnesium (Prilosec Otc) 1 TAB PO DAILY (Reported) FOLLOW UP APPOINTMENT: PCP 2 weeks Time Spent Total time spent with patient [] minutes for coordination of care, counseling, and education. JIMI ALEX MD Sep 01, 2016 12:10
--- NOTE | 2016-09-01 15:57 | PDOC ---
PROGRESS NOTES Assessment Assessment Dizziness. Syncopal spells x 2. HTN Orthostatic hypotension. No evidence of large acute CVA this time. RECOMMENDATIONS/PLAN: Treat HTN. Continue ASA 325 mg daily. OT/PT FU with PCP. FU with Neurology as needed. HISTORY OF THE PRESENT ILLNESS: 71-y-old male patient stated he was healthy previously but had 2 syncopal and dizziness episodes this time. The first one was on 08/29/16 while he was going shopping. He felt dizzy, unsteadiness with mild mental status changes , and feeling of falling and he had to hold object to avoid fall. His episode lasted for a few minutes then returned to normal. He denied perspiration, black out, vision decrease or loss. The 2nd episode was in the morning of 08/30/16 after shaving of snow. He returned to house then had similar episode. He was eventually admitted into the hospital for further evaluation after seeing his PCP. He was found to have HTN which he has no knowledge before. No focalized motor or sensory deficits. No seizures. He stated he has been doing well since in the hospital. PAST MEDICAL HISTORY: Please see above. PAST SURGERY HISTORY: No major surgery recently. ALLERGY: NKDA MEDICATIONS: Refer to [facility] HISTORY: Non contributory. SOCIAL HISTORY: Lives at home. Denies smoking, drinking, and illicit drug use. REVIEW OF SYSTEMS: Constitutional: No malnutrition, weight loss, cachexia. Head: No recent traumatic brain or head injury. Skin: No edema, or rash. Ear: No infection, tinnitus. Eyes: No vision loss or color blindness. Nose: No bleeding or purulent discharges. Hearing: No hearing decrease. Neck: No injury. Cardiac: HTN found this time. Pulmonary: No COPD. GI: No GI ulcer, GI bleeding. Urinary/genital: No dysuria, hematuria, incontinence. Endocrinologic: No cousin face, craniofacial dysmorphism, polydactyly, goiter.. Skeletomuscular: No muscular atrophy, deformity. Neurological: see HP. Psychiatric: Denies drug use/abuse. Otherwise, not [id number] review of systems. PHYSICAL EXAMINATION: General appearance is in no acute distress. HEENT: Normocephalic and nontraumatic. Eyes, nose, ears, and throat are unremarkable. Neck is supple. No lymphadenopathy. No bruits are heard over the carotid artery. No crepitus. Cardiovascular: S1, S2, regular rate and rhythm. Pulmonary: Clear to auscultation bilaterally. Abdomen: Bowel sounds are positive. Abdomen is soft, nontender, and nondistended. Extremities: No rash, lesions, or edema. No restriction of range of motion NEUROLOGICAL EXAMINATION: Alert Oriented to time, place and person. PERRL. EOMI. CN: no focal findings. Muscle tone: within normal. Muscle strength: 5 DTR: 2+ Plantar reflex: Flexor response bilaterally Gait: Normal. Sensory exam: no abnormal findings. No cerebellar signs elicited. F-T-N test accurate. Objective Objective Vital Signs Date Time Temp Pulse Resp B/P Pulse Ox O2 Delivery O2 Flow Rate FiO2 09/01/16 11:00 98.2 54 16 131/74 100 Room Air 98.2 Intake and Output 09/01/16 07:00 Intake Total 900 ml Balance 900 ml Intake Oral 900 ml # Voids 5 Vitals Signs Vitals VS - Last 72 Hours, by Label Date Time Temp Pulse Resp B/P Pulse Ox O2 Delivery O2 Flow Rate FiO2 09/01/16 11:00 98.2 54 16 131/74 100 Room Air 98.2 09/01/16 08:00 Room Air 09/01/16 07:00 98.3 63 18 116/78 98 Room Air 98.3 09/01/16 03:00 98.3 64 18 126/81 96 Room Air 98.3 08/31/16 23:00 98.2 62 20 130/85 98 Room Air 98.2 08/31/16 19:00 97.5 50 20 163/83 100 Room Air 97.5 08/31/16 19:00 98.0 60 20 128/76 98 Room Air 98.0 08/31/16 19:00 98.1 51 20 180/91 100 Room Air 98.1 08/31/16 14:55 98.2 58 18 136/78 100 Room Air 98.2 08/31/16 11:11 98.1 61 18 142/86 97 Room Air 98.1 08/31/16 08:00 Room Air 08/31/16 07:10 69 95/64 97 Room Air 08/31/16 07:05 61 116/70 98 Room Air 08/31/16 07:00 97.8 54 18 139/67 97 Room Air 97.8 Laboratory Laboratory Laboratory Tests Test 09/01/16 05:20 White Blood Count 6.5x10^3/uL (4.0-11.0) Red Blood Count 4.81x10^6/uL (4.30-5.70) Hemoglobin 15.1g/dL (13.0-17.5) Hematocrit 44.2% (39.0-53.0) Mean Corpuscular Volume 92fL (79-100) Mean Corpuscular Hemoglobin 31pg (25-35) Mean Corpuscular Hemoglobin Concent 34g/dL (31-37) Red Cell Distribution Width 13.2% (11.5-14.5) Platelet Count 142x10^3/uL (140-400) Sodium Level 142mmol/L (136-145) Potassium Level 4.6mmol/L (3.5-5.1) Chloride Level 105mmol/L (98-107) Carbon Dioxide Level 29mmol/L (21-32) Anion Gap 8 (6-14) Blood Urea Nitrogen 17mg/dL (8-26) Creatinine 1.1mg/dL (0.7-1.3) Estimated GFR (Cockcroft-Gault) 66.4 Glucose Level 87mg/dL (70-99) Calcium Level 8.7mg/dL (8.5-10.1) Comment Review of Relevant I have reviewed the following items alda (where applicable) has been applied. MARILYNN SEWELL MD Sep 01, 2016 15:56
--- NOTE | 2016-09-02 18:41 | RESP ---
DATE OF SERVICE: 08/31/2016 The patient's mean oxygen saturation remained around 96%. No clinically significant desaturation of less than 90% were observed. Lowest recorded saturation was 72%, which was an artifact. IMPRESSION: No clinically significant nocturnal hypoxia. PEPPER AVILA MD DR: DANIELITO/leo JOB#: [id number] / [id number] RONEY
== END 2016-09-01 12:39 | disposition home or self-care (01) | DRG 312 ==
LOC: 5 SOUTH 13:20
PROVIDERS: ADMIT Family Medicine; ATTEND Family Medicine
DX: I95.1 Orthostatic hypotension (principal); M19.90 Unspecified osteoarthritis, unspecified site; Z87.442 Personal history of urinary calculi; K21.9 Gastro-esophageal reflux disease without esophagitis; E78.5 Hyperlipidemia, unspecified; E11.9 Type 2 diabetes mellitus without complications; J84.10 Pulmonary fibrosis, unspecified; I27.2 Other secondary pulmonary hypertension; R42 Dizziness and giddiness; I10 Essential (primary) hypertension; Z79.82 Long term (current) use of aspirin; Z79.899 Other long term (current) drug therapy; Z98.890 Other specified postprocedural states
CPT/HCPCS: 36415; 70450; 71275; 80048; 80053; 80061; 81001; 85027; 85379; 93005; 93306; 93880; 94799; G0481; Q9967

== ENCOUNTER → 2020-09-07 | Outpatient (CLI) | payer MEDICARE, OTHER ==
[~2020-09-07] MED LIST: EZET10TA20 PO; OMEP20TA63 PO
--- NOTE | 2020-09-07 15:42 | KCIC ---
MRI BRAIN WO Date: 09/07/2020 2:10 PM Indication: VERTIGO. Chronic vertigo that comes and goes. Comparison: CT head 08/30/2016. Technique: Multiplanar multisequence MRI of the brain was performed without intravenous contrast usin g the standard protocol. Findings: No acute infarct. No acute or chronic hemorrhage. The ventricles are normal in size and configuration without hydrocephalus. Minimal scattered FLAIR hyperintensities in the subcortical and periventricul ar deep white matter, a nonspecific finding, appropriate for patient age. The scalp and calvarium are normal. The pituitary and sella are normal. No Chiari malformation. The v isualized upper cervical spine is normal. The visualized orbits and globes are normal. The visualized paranasal sinuses are clear. The mastoid air cells are clear. Normal flow voids within the vertebral, basilar, and internal carotid arteries indicating patency. IMPRESSION: No acute infarct, hemorrhage, mass, or hydrocephalus. Electronically signed by: Timo Osuna MD (09/07/2020 3:40 PM) [id number]
== END ==
LOC: KCIC MRI 13:40
PROVIDERS: ATTEND Family Medicine
DX: R42 Dizziness and giddiness (principal)
CPT/HCPCS: 70551